=== PATIENT | male | born 1935 | race Caucasian/White ===

== ENCOUNTER 2017-02-20 18:50 | Inpatient (IN) | payer OTHER, SELFPAY ==
[2017-02-17 17:04] LABS: A/G RATIO 1.4 (0.7-1.9); BUN (BLOOD UREA NITROGEN) 23 MG/DL (6-23); CALCIUM, SERUM 8.7 MG/DL (8.5-10.4); CHLORIDE, SERUM 104 MMOL/L (96-112); CHOL/HDL RATIO(NOT ORDER) 2.3 (0-5); CHOLESTEROL 124 MG/DL (< 200); CO2 (CARBON DIOXIDE) 24 MMOL/L (24-34); CPK 22 U/L (0-200); CREATININE 1.55 MG/DL (0.70-1.30); GFR AFRICAN AMERICAN 49 ML/MIN (>=60); GFR NON AFRICAN AMERICAN 42 ML/MIN (>=60); GLOBULIN 2.8 G/DL (2.5-4.1); GLUCOSE, SERUM 107 MG/DL (60-99); HDL CHOLESTEROL 53 MG/DL (> 39); NON-HDL CHOLESTEROL 71 MG/DL (< 160); POTASSIUM, SERUM 3.8 MMOL/L (3.5-5.3); SGOT(AST) 29 U/L (5-40); SGPT(ALT) 28 U/L (5-65); SODIUM, SERUM 140 MMOL/L (135-148); TOTAL BILIRUBIN 0.6 MG/DL (0-1.2); TOTAL PROTEIN 6.8 G/DL (6.0-8.5)
[2017-02-17 17:12] LABS: ALKALINE PHOSPHATASE 79 U/L (45-117); LDL CHOLESTEROL 55 MG/DL (< 130); TRIGLYCERIDE 84 MG/DL (< 150)
--- NOTE | ~2017-02-20 | DS ---
Discharge Summary [facility] [address] [place]. [address] NAME: RUTHANN KEANE : 39 STATUS : DIS IN PAT#: [id number] AGE: 81 ADM/REG DATE : 02/20/17 MR#: [id number] REPORT SERV DATE: 02/22/17 DICTATED BY: MESERET BECERRIL DATE: 02/22/17 REPORT STATUS : Draft TRANSCRIBED BY: MODL DATE: 02/22/17 ADMISSION DATE: 02/20/2017 DISCHARGE DATE: 02/22/2017 PRINCIPAL DIAGNOSIS: Intractable vomiting. 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 HISTORY OF PRESENT ILLNESS: Please see Dr. Viera's dictation, 02/20/2017. HOSPITAL COURSE: Admitted with intractable nausea and vomiting. The patient was found to be severely dehydrated. The patient was hydrated aggressively with actual substantial resolution in his symptoms. Reglan was given and transitioned to p.o. His antidepressant was changed to Remeron due to weight loss. He advanced his diet and actually felt quite well. On the morning of 02/22/2017, was released home in satisfactory condition with diet as tolerated; activity as tolerated; continuing Reglan 5 mg with meals for a week, Remeron 15 mg q.h.s. for a week followed by 30 q.h.s. to replace the Zoloft. Encouraged plenty of fluids. Laxatives p.r.n. after having required suppositories here in the hospital. He will follow up with Dr. Josr Tate in one to two weeks. Other medications are unchanged. JARRED/DAKOTA Meseret Becerril M.D. / [id number] CC: Qi Carlson M.D.
--- NOTE | ~2017-02-20 | HP ---
History And Physical [facility] [id number] [place]. [address] NAME: RUTHANN SPENCER : 39 STATUS : ADM IN [facility]#: [id number] AGE: 81 ADM/REG DATE : 02/20/17 MR#: [id number] REPORT SERV DATE: 02/21/17 DICTATED BY: FADY EPPS DATE: 02/20/17 REPORT STATUS : Draft TRANSCRIBED BY: DAKOTA DATE: 02/20/17 DATE OF ADMISSION: 02/20/2017 CHIEF COMPLAINT: Nausea and vomiting. HISTORY OF PRESENT ILLNESS: This is a 81-year-old male with a past medical history of hypertension, CKD, and chronic pancytopenia who visits from his primary care's office for complaints of nausea and vomiting. According to the patient and primary care's note, the patient was treated for upper respiratory infection/bronchitis with amoxicillin and antitussives approximately a week ago, however, the patient developed nausea and vomiting/dry heaves, he could not complete his antibiotic after three days. Also, the patient has had worsening generalized weakness. According to the , the patient has not had any oral intake for several days. Initially, the patient did have some sore throat, nasal congestion, and a cough, but the patient states his cough is much improved. He denies any abdominal pain. No constipation or diarrhea. Denies any subjective fever or chills. His primary care referred the patient to the ER and the patient was seen in the ER by Dr. Boggs and the hospitalist was called to admit the patient to the hospital. The patient is supposed to have an appointment with Dr. Kobi Parada, a gasoline tester, for his pancytopenia. REVIEW OF SYSTEMS: Please refer to HPI. PAST MEDICAL HISTORY: Renal stones, status post lithotripsy, TIA, hypertension, glaucoma, bradycardia with pacemaker, COPD, obstructive sleep apnea. The patient has an appointment for a new CPAP. Pancytopenia, hyperlipidemia, IBS, ostial arthritis. PAST SURGICAL HISTORY: Lithotripsy, right inguinal hernia repair with mesh, pacemaker placement. FAMILY HISTORY: Arthritis, type 2 diabetes, hypertension. SOCIAL HISTORY: No tobacco, alcohol, or illicit drugs. Uses a cane. ALLERGIES: NO KNOWN ALLERGIES. HOME MEDICATIONS: Please refer to the reconciliation of medication by Pharmacy. PHYSICAL EXAMINATION: VITAL SIGNS: Temp of 98.6, blood pressure 146/84 with a pulse of 79, respiration of 19, saturating 96% on room air. GENERAL: The patient is alert and oriented, currently in no distress. Frail. HEENT: Pupils equal, round, and reactive to light. Extraocular muscles are intact. Anicteric sclerae. Dry mucous membranes. CARDIOVASCULAR: S1, S2. Regular rate and rhythm. No murmurs, rubs, or gallops. No JVD. RESPIRATORY: Clear to auscultation bilaterally. No wheezes or crackles. No signs of History And Physical [address] [address] NAME: RUTHANN SPENCER : 39 STATUS : ADM IN [facility]#: [id number] AGE: 81 ADM/REG DATE : 02/20/17 MR#: [id number] REPORT SERV DATE: 02/21/17 DICTATED BY: FADY EPPS DATE: 02/20/17 REPORT STATUS : Draft TRANSCRIBED BY: DAKOTA DATE: 02/20/17 tachypnea. ABDOMEN: Positive bowel sounds. Soft, nontender. No rebound. No fluid wave. No distention. Soft. EXTREMITIES: 2+ pulse bilaterally. No edema. NEURO: Cranial nerves II through XII grossly intact. Moves all four extremities. No neuro focal deficits. RADIOLOGY: Chest x-ray, no active infiltrates. LABORATORY DATA: Sodium 139, potassium 4, with a chloride of 103, bicarb of 27, BUN of 18, creatinine of 1.43 with a glucose of 127. T bilirubin of 0.9, alkaline phosphatase 86, ALT of 35, AST of 34. White count of 2.9 with a hemoglobin of 13.7, and platelet count of 82,000. INR is pending. Influenza swab negative. UA, nondiagnostic. EKG: Atrial paced rhythm, but no ST elevation. Ventricular rate of 79. ASSESSMENT AND PLAN: 1. Nausea, vomiting. 2. Failure to thrive with debility. 3. Upper respiratory infection. 4. Chronic pancytopenia. 5. The patient will be admitted to the Hospitalist Service. We will continue with IV hydration as well as antiemetics, supportive care. The patient has no clinical symptoms of a bowel obstruction. However, suspect, there is a dry heave/nausea and vomiting secondary to his antibiotic as well as sinus drainage. We will continue to treat and the patient will be followed by my colleague, who will attend to Mr. Spencer's care. SHELBY/DAKOTA Fady Epps M.D. / [id number] CC: Qi Carlson M.D.
--- NOTE | ~2017-02-20 | CN ---
Consultation Report [facility] [address] [place]. [address] NAME: RUTHANN SPENCER : 39 STATUS : ADM IN [facility]#: [id number] AGE: 81 ADM/REG DATE : 02/20/17 MR#: [id number] REPORT SERV DATE: 02/21/17 DICTATED BY: KEVAN SMITH DATE: 02/21/17 REPORT STATUS : Draft TRANSCRIBED BY: MODL DATE: 02/21/17 CONSULTATION DATE OF CONSULTATION: REASON FOR REFERRAL: Cytopenias. HISTORY OF PRESENT ILLNESS: Mr. Spencer is a gentleman, who I last saw in 2013 with cytopenias. In June 2013, he had a normal bone marrow biopsy. He also had mild anemia that improved with oral iron. He is now admitted with chills and fever and has cytopenias. PAST MEDICAL HISTORY: Stroke with loss of vision, hypertension, chronic kidney disease. SOCIAL HISTORY: He does not smoke or use alcohol. FAMILY HISTORY: No family history of blood disease. REVIEW OF SYSTEMS: Negative except as per the HPI. PHYSICAL EXAMINATION: GENERAL: Reveals a well-developed gentleman. VITAL SIGNS: 97.9, 168/76, 72, 18. HEENT: The eye exam shows that the lids and conjunctivae are without lesions. Pupils are equal, round, reactive. The mouth, the lips and gums show no abnormalities. The oropharynx is without thrush or stomatitis. NECK: Supple. There is no thyromegaly or mass. CARDIOVASCULAR: Reveals regular rate and rhythm with no murmur. There is no lower extremity edema. LUNGS: Clear to auscultation bilaterally with normal respiratory effort. SKIN: Without rash or nodules. PSYCHIATRIC: Shows normal insight and judgment with appropriate mood and affect. ABDOMEN: Soft. There is no hepatosplenomegaly or mass. DATA REVIEW: I personally reviewed his blood smear, which shows leukopenia and thrombocytopenia without left shift, immature forms, or other abnormalities. The WBC is 3.2, hemoglobin is 12.0, platelets 72. Thousand comprehensive metabolic profile shows normal liver tests. ASSESSMENT: Leukopenia and thrombocytopenia that are slightly worse from baseline. He has had a normal bone marrow biopsy in the past and this is occurring within the setting of acute illness. I think we can follow him conservatively at this time. Consultation Report [facility] [address] [place] [place]. [address] NAME: RUTHANN SPENCER : 39 STATUS : ADM IN PAT#: [id number] AGE: 81 ADM/REG DATE : 02/20/17 MR#: [id number] REPORT SERV DATE: 02/21/17 DICTATED BY: KEVAN SMITH DATE: 02/21/17 REPORT STATUS : Draft TRANSCRIBED BY: MODL DATE: 02/21/17 EA/DAKOTA Kevan Smith M.D. / [id number] CC: Qi Carlson M.D.
[2017-02-20 15:41] LABS: BASOPHILS 0 %; EOSINOPHILS 0 %; ER CBC TAT 0 Hrs 05 Mins; HEMATOCRIT 38.2 % (40.0-51.0); HEMOGLOBIN 13.7 g/dL (13.6-17.8); IMMATURE GRANULOCYTES 0.3 %; IMMATURE GRANULOCYTES ABSOLUTE 0.01 10/3/uL (0.0-0.11); LYMPHOCYTES 9.7 %; LYMPHOCYTES ABSOLUTE 0.28 10/3/uL (0.67-4.30); MEAN CORPUSCULAR HEMOGLOB 32.9 pg (26.0-34.0); MEAN CORPUSCULAR VOLUME 91.6 fL (80-100); MEAN PLATELET VOLUME 9.2 fL (9.2-13.0); MONOCYTES 10.7 %; MONOCYTES ABSOLUTE 0.31 10/3/uL (0.21-1.20); NEUTROPHILS 79.3 %; NEUTROPHILS ABSOLUTE 2.29 10/3/uL (2.02-8.40); PLATELET COUNT 82 10/3/uL (150-400); RBC DISTRIBUTION WIDTH 12.4 % (12.0-16.0); RED CELL COUNT 4.17 10/6/uL (4.7-6.1); WHITE BLOOD CELLS 2.9 10/3/uL (4.5-10.5)
[2017-02-20 15:46] LABS: MANUAL DIFF NO %; MEAN CORPUS HGB CONC 35.9 g/dL (32.0-36.0)
[2017-02-20 15:54] LABS: A/G RATIO 1.2 (0.7-1.9); ALBUMIN 4.4 G/DL (3.5-5.0); ALKALINE PHOSPHATASE 86 U/L (45-117); CALCIUM, SERUM 9.1 MG/DL (8.5-10.4); CHLORIDE, SERUM 103 MMOL/L (96-112); CO2 (CARBON DIOXIDE) 27 MMOL/L (24-34); CREATININE 1.43 MG/DL (0.70-1.30); GFR AFRICAN AMERICAN 54 ML/MIN (>=60); GFR NON AFRICAN AMERICAN 46 ML/MIN (>=60); GLUCOSE, SERUM 127 MG/DL (60-99); SGOT(AST) 24 U/L (5-40); SGPT(ALT) 35 U/L (5-65); SODIUM, SERUM 139 MMOL/L (135-148); TOTAL BILIRUBIN 0.9 MG/DL (0-1.2)
[2017-02-20 15:55] LABS: BUN (BLOOD UREA NITROGEN) 18 MG/DL (6-23); GLOBULIN 3.6 G/DL (2.5-4.1)
[2017-02-20 16:06] LABS: BAND NEUTROPHILS 1 %; EOSINOPHILS 1 %; EOSINOPHILS ABSOLUTE (CALC) 0.03 10/3/uL (0.0-0.53); ER DIFF TAT 0 Hrs 30 Mins; LYMPHOCYTES 15 %; LYMPHOCYTES ABSOLUTE (CALC) 0.44 10/3/uL (0.67-4.30); MONOCYTES 5 %; MONOCYTES ABSOLUTE (CALC) 0.15 10/3/uL (0.21-1.20); NEUTROPHILS ABSOLUTE (CALC) 2.29 10/3/uL (2.02-8.40); PLATELET ESTIMATE DEC (ADEQUATE); RBC MORPHOLOGY NORM (NORMAL); SEGMENTED NEUTROPHIL (0) 78 %; TOTAL NUCLEATED CELLS 100
[2017-02-20 17:53] LABS: INFLUENZA A SCREEN NEGATIVE (NEGATIVE); INFLUENZA B SCREEN NEGATIVE (NEGATIVE)
[~2017-02-20 18:50] MED LIST: ACET500CAP PO; ASABAYER PO; CARDCD240 PO; COMBIGAN0.2 MG/0.5 OP; COZ50 PO; DORZOLAMIDE2 % OP; FERRETTS325 MG PO; FISH OIL1200 MG PO; FLOMAX4 PO; LUMIGAN2.5 ML OPH; PRILOSEC40 MG PO; VITAMIN D31000 UNIT PO; ZOL100 PO
[2017-02-20 19:03] LABS: ASCORBIC ACID (UR NOT ORDER) NEG (NEG); BILIRUBIN, URINE NEGATIVE (NEG); ER URINALYSIS TAT 0 Hrs 14 Mins; KETONE, URINE NEGATIVE (NEG); LEUKOCYTE ESTERASE(NOT OR NEG (NEG); NITRITE (URINE) NEG (NEG); WBC (NOT ORDERED) (RFLEX) 9 (0-5)
[2017-02-20] MEDS ORDERED: DILT-XR240 MG PO (19:58)
[2017-02-20] MEDS ORDERED: TESS PO (19:58)
[2017-02-20] MEDS ORDERED: FLOMAX4 PO (19:58)
[2017-02-20] MEDS ORDERED: ZOL100 PO (19:59)
[2017-02-20] MEDS ORDERED: PRAVACHOL40 MG PO (19:59)
[2017-02-20] MEDS ORDERED: ZANAFLEX 4 MG TA4 MG PO (20:00)
[2017-02-20] MEDS ORDERED: AUG875 PO (20:04)
[2017-02-20] MEDS ORDERED: LUMIGAN2.5 ML OPH (20:05)
[2017-02-20] MEDS ORDERED: TRUSOPT2 % OPH (20:06)
[2017-02-20] MEDS ORDERED: IRON OTC PO (20:08)
[2017-02-20] MEDS ORDERED: ASAB PO (20:09)
[2017-02-20] MEDS ORDERED: MAXIMUM D3 PO (20:09)
[2017-02-20] MEDS ORDERED: TEARS PURE OPH (20:09)
[2017-02-20] MEDS ORDERED: 8 HOUR650 MG PO (20:10)
[2017-02-21 05:06] LABS: BASOPHILS 0 %; EOSINOPHILS 0.3 %; EOSINOPHILS ABSOLUTE 0.01 10/3/uL (0.0-0.53); IMMATURE GRANULOCYTES 0.3 %; IMMATURE GRANULOCYTES ABSOLUTE 0.01 10/3/uL (0.0-0.11); LYMPHOCYTES 19.4 %; LYMPHOCYTES ABSOLUTE 0.62 10/3/uL (0.67-4.30); MEAN CORPUS HGB CONC 35.4 g/dL (32.0-36.0); MEAN CORPUSCULAR HEMOGLOB 31.9 pg (26.0-34.0); MEAN CORPUSCULAR VOLUME 90.2 fL (80-100); MEAN PLATELET VOLUME 9.7 fL (9.2-13.0); MONOCYTES 11.3 %; MONOCYTES ABSOLUTE 0.36 10/3/uL (0.21-1.20); NEUTROPHILS 68.7 %; PLATELET COUNT 72 10/3/uL (150-400); RBC DISTRIBUTION WIDTH 12.6 % (12.0-16.0); RED CELL COUNT 3.76 10/6/uL (4.7-6.1); WHITE BLOOD CELLS 3.2 10/3/uL (4.5-10.5)
[2017-02-21 05:08] LABS: HEMATOCRIT 33.9 % (40.0-51.0); MANUAL DIFF NO %
[2017-02-21 05:20] LABS: BUN (BLOOD UREA NITROGEN) 15 MG/DL (6-23); CALCIUM, SERUM 8.8 MG/DL (8.5-10.4); CHLORIDE, SERUM 105 MMOL/L (96-112); CO2 (CARBON DIOXIDE) 25 MMOL/L (24-34); CREATININE 1.32 MG/DL (0.70-1.30); GFR AFRICAN AMERICAN 59 ML/MIN (>=60); GFR NON AFRICAN AMERICAN 51 ML/MIN (>=60); GLUCOSE, SERUM 131 MG/DL (60-99); POTASSIUM, SERUM 3.8 MMOL/L (3.5-5.3); SODIUM, SERUM 138 MMOL/L (135-148)
[2017-02-22] MEDS ORDERED: FLONASE NAS (11:01)
[2017-02-22] MEDS ORDERED: REG5 PO (11:03)
[2017-02-22] MEDS ORDERED: REM15 PO ×2 (11:04→11:05)
[2017-02-22] MEDS ORDERED: MVI PO (11:06)
== END 2017-02-22 13:22 | disposition home or self-care (01) | DRG 641 ==
LOC: ER 18:50 → 7NO 20:38
PROVIDERS: Emergency Medicine; Family Medicine; Internal Medicine
DX: E86.0 Dehydration (principal); D61.818 Other pancytopenia; J44.9 Chronic obstructive pulmonary disease, unspecified; D47.2 Monoclonal gammopathy; R62.7 Adult failure to thrive; F32.9 Major depressive disorder, single episode, unspecified; K59.00 Constipation, unspecified; G47.33 Obstructive sleep apnea (adult) (pediatric); R63.4 Abnormal weight loss; Z68.22 Body mass index [BMI] 22.0-22.9, adult; R11.10 Vomiting, unspecified
CPT/HCPCS: 71020; 80048; 80053; 80061; 81001; 82306; 82550; 83036; 83735; 85025; 87040; 87804; 93005; 96361; 96374; 96375; 99285; A9270-GY; C9113; J2405; J2765